=== PATIENT | female | born 1990 | race Caucasian/White ===

== ENCOUNTER → 2020-07-12 09:45 | Outpatient (CLI) | payer OTHER, SELFPAY ==
--- NOTE | 2020-07-12 | DI.US.S_ITS ---
PROCEDURE: US OB <= 14 WEEKS FETUS INDICATIONS: INITIAL SIZING AND DATING OUTSIDE/PRIOR DATING DATA: First dating scan (date and location): 07/12/2020 . Estimated date of delivery (RAYO) from first dating scan: 02/21/2021 . TECHNIQUE: Real-time scanning was performed of the fetus and maternal pelvic organs, with image documentation. Endovaginal scanning was also performed to better visualize the fetus and maternal ovaries. COMPARISON: None. FINDINGS: Embryo: May-rump length measures 1.6 cm corresponding to 8 weeks 0 days. Heart rate measures 149 beats per minute. Measurement variability in dating: +/- 4 weeks by LMP, +/- 7 days by mean sac diameter (use before 6 weeks gestation if crown-rump length not able to be measured), +/- 5 days by crown-rump length (up to 8 weeks 6 days gestation), +/- 7 days by crown-rump length (up to 13 weeks 6 days gestation). Maternal organs: Ovaries within normal limits, with 2.6 cm left corpus luteal cyst . Limited images through the kidneys demonstrate no hydronephrosis. IMPRESSION: 8 week 0 day single living IUP corresponding to ultrasound RAYO of 02/21/2021. Dictated by: Leon Trejo [facility] Interpreted: Tariq Owens MD on 07/12/2020 at 11:02 Approved by: Tariq Owens M.D. on 07/12/2020 at 13:57
== END ==
PROVIDERS: PCP Student in an Organized Health Care Education/Training Program; Referring Provider Student in an Organized Health Care Education/Training Program; Visit Provider Student in an Organized Health Care Education/Training Program
DX: Z34.91 Encounter for supervision of normal pregnancy, unspecified, first trimester (principal); Z3A.08 8 weeks gestation of pregnancy
CPT/HCPCS: 76801

== ENCOUNTER → 2020-10-10 09:41 | Outpatient (CLI) | payer OTHER, SELFPAY ==
--- NOTE | 2020-10-10 09:44 | DI.US.S_ITS ---
PROCEDURE: US OB >= 14 WEEKS FETUS INDICATIONS: 20 week Anatomy scan OUTSIDE/PRIOR DATING DATA: Last menstrual period (LMP): On known . LMP-based estimated date of delivery (RAYO): Unknown . First dating scan (date and location): 07/12/2020, Estimated date of delivery (RAYO) from first dating scan: 02/21/2021 . TECHNIQUE: Real-time scanning was performed of the fetus, with image documentation and biometric measurements. COMPARISON: [facility], , OB <= 14 WEEKS FETUS, 07/12/2020, 9:57. FINDINGS: General: A single living intrauterine gestation is present. Presentation: Vertex. Placenta: Placental position is anterior , without previa. Amniotic fluid index: 11.7 cm, normal range is 5-24 cm. heart rate: 147 beats per minute. Maternal cervical canal: 5.9 cm long. Normal lower limit is 2.5 cm. biometrics: Biparietal diameter: 4.6 cm, 20 weeks 0 days Head circumference: 18.2 cm, 20 weeks 4 days Abdominal circumference: 15.8 cm, 21 weeks 0 days Femur length: 3.8 cm, 22 weeks 0 days Estimated gestational age from initial scan: 20 weeks 6 days Composite gestational age from present scan: 20 weeks 6 days Estimated weight and percentile: 413 g, 69th percentile Measurement variability for biometric dating: +/- 7 days from 14 weeks to 15 weeks 6 days gestation, +/- 10 days from 16 weeks to 21 weeks 6 days gestation, +/- 2 weeks from 22 weeks to 27 weeks 6 days gestation, +/- 3 weeks for 28 weeks gestation or later. weight reference: 4500 g or EFW >90/95% is considered macrosomia or large for gestational age. EFW <10% is small for gestational age. EFW 5% or less is considered intra-uterine growth restriction. Anatomic survey: Neuro: Ventricles are non-dilated at less than 10 mm. Cisterna magna is normal at 3-11 mm. Cerebellum is normal in size and morphology. Nuchal skin fold: Normal at less than 6 mm between 14-21 weeks gestational age. Face: Nose and lips, facial profile are normal. Spine: No evidence for spina bifida. Heart: 4-chambered heart is present, with normal ventricular outflow tracts. Diaphragm: Diaphragm is intact. Stomach: Left-sided stomach is present. Kidneys: No hydronephrosis. Normal is less than 5 mm in 2nd trimester, less than 7 mm in 3rd trimester. Cord: 3-vessel cord has orthotopic insertion. Bladder: Normal in size. Extremities: All 4 extremities identified. IMPRESSION: 1. Living 2nd trimester intrauterine . 2. Current ultrasound age equals current clinical age based on initial ultrasound. 3. Normal anatomy survey. Dictated by: Darinel Lopez M.D. on 10/10/2020 at 12:53 Approved by: Darinel Lopez M.D. on 10/10/2020 at 13:38
== END ==
PROVIDERS: PCP Student in an Organized Health Care Education/Training Program; Referring Provider Nurse Practitioner Obstetrics & Gynecology; Visit Provider Nurse Practitioner Obstetrics & Gynecology
DX: Z36.89 Encounter for other specified antenatal screening (principal); Z3A.20 20 weeks gestation of pregnancy
CPT/HCPCS: 76811

== ENCOUNTER → 2020-11-19 06:46 | Outpatient (CLI) | payer OTHER, SELFPAY ==
[2020-11-19 08:17] LABS: Hematocrit 30.6 % (36-46); Hemoglobin 10.7 g/dL (12.0-16.0); Mean Corpuscular HGB Conc 34.8 % (30-36); Mean Corpuscular Hemoglobin 31.6 PG (26-34); Mean Corpuscular Volume 90.6 fL (80-100); Platelet Count 228 X10^3/uL (150-400); Red Blood Cell Count 3.38 X10^6/uL (4.0-5.2); Red Cell Distribution Width 13.3 % (11.6-14.8)
[2020-11-19 08:34] LABS: Glucose Fasting 84 mg/dL (70-100)
[2020-11-19 09:04] LABS: Glucose 1 Hour 126 mg/dL (70-170)
[2020-11-19 09:19] LABS: Glucose Tol Interpretation INTERPRETATION
[2020-11-19 11:25] LABS: Glucose 2 Hour 122 mg/dL (70-140)
== END ==
PROVIDERS: PCP Student in an Organized Health Care Education/Training Program; Referring Provider Nurse Practitioner Obstetrics & Gynecology; Visit Provider Nurse Practitioner Obstetrics & Gynecology
DX: Z34.90 Encounter for supervision of normal pregnancy, unspecified, unspecified trimester (principal); Z3A.26 26 weeks gestation of pregnancy
CPT/HCPCS: 36415; 82951; 82952; 85027

== ENCOUNTER → 2021-01-29 19:48 | Outpatient (ROUT) | payer OTHER, SELFPAY | PROVIDERS: PCP Student in an Organized Health Care Education/Training Program; Visit Provider Nurse Practitioner Obstetrics & Gynecology | DX: Z34.90 Encounter for supervision of normal pregnancy, unspecified, unspecified trimester (principal); Z36.85 Encounter for antenatal screening for Streptococcus B; Z3A.36 36 weeks gestation of pregnancy | CPT/HCPCS: 87081; 87147 ==

== ENCOUNTER 2021-03-04 05:31 | Inpatient (IN) | payer OTHER, SELFPAY ==
--- NOTE | 2021-03-04 05:38 | PM.OBTRLD ---
Visit Information Visit Information Date of evaluation: 03/04/21 Primary OB Provider: Fide Bolanos On-call OB Provider: Bernadette Mirza Reason for Evaluation: Yes rule out labor Comments/Additional reasons for admission: 30YO @ 41wks by LMP and early US presents for evaluation of labor. Has keo dung regularly since yesterday. Lots of FM w/ small spotting and just lost her mucus plug. Denies leaking of fluid. Uncomplicated care w/ CNM. Desires low intervention , but open to nitrous and epidural. Is extremely tired, not having slept much overnight. , Seb, is present and supportive. Vital Signs Vital Signs: BP 120/64, HR 88bpm, T 36.3C Temporal PFSH Family History (Updated 03/04/21 @ 05:45 by Fide Bolanos CNM) Sister No problems noted. Mother Substance abuse Social History (Updated 03/04/21 @ 05:46 by Fide Bolanos CNM) marital status: household members: spouse lives independently: Yes caregiver/support person: No housing: house education level: college occupational status: employed current occupational exposures/hazards: No do you feel safe at home: Yes Smoking Status: Never smoker Review of Systems Review of Systems ROS: Yes All systems reviewed with the patient and are negative except as otherwise documented Exam Vital Signs (past 8 hours): see above Presentation: vertex Evaluation Evaluation Baseline heart rate: 145 Variability: Moderate (11-25) monitor accelerations: Present Monitor Decelerations: Absent Contraction Frequency (minutes): 3 Uterine Contraction Intensity: Moderate Category of Tracing: Reactive Status: Category l Cervical dilation (cm): 3 Cervical effacement (%): 90 station: -2 Comments: Early Labor Diagnosis, Plan/Disposition Plan/Disposition Plan: Recommend 2 hour walk and return. Encourage hydration and snacks. Reassess for admission in 2 hours or sooner. PRN.
[2021-03-04 06:41] LABS: COVID-19 CEPHEID PCR (VTM/NP) Negative (Negative)
--- NOTE | 2021-03-04 08:58 | PM.OBHP.1 ---
OB HPI Date/Time Date of admission: 03/04/21 Date Patient Seen: 03/04/21 Time Patient Seen: 08:50 History of Present Condition Chief complaint: Observation : 1 Para: 0 Estimated Date of Delivery: 02/25/21 Estimated Gestational Age (weeks): 41.0 Narrative: Ayana Nails is a 30 year old female @ 41wks by LMP and early US who presents for evaluation of labor. Was seen in triage this morning @ /-2 and went for a walk with no concers for vaginal bleeding or leaking of fluid. Has been feeling regular movement. History of Present care: good care, initiated at week # (10), number of visits (12) and pounds weight gain (29) Dating criteria: LMP confirmed by 1st trimester US Ultrasounds: normal mid trimester US Obstetrical complications: other (Anemia) Medical complications: none Preadmission Labs Blood type: A (+) positive -: Antibody screen: negative, GBS status: positive, HBsAG: negative and RPR/VDLR: negative -: Rubella: immune HCAB: negative Cell-free DNA: Negative- female Narrative: 2hr gtt: 84/126/122 Evaluation Evaluation Baseline heart rate: 145 Variability: Average (6-10) monitor accelerations: Present Monitor Decelerations: Absent Contraction Frequency (minutes): 4 Uterine Contraction Intensity: Moderate Status: Category l Cervical dilation (cm): 4 Cervical effacement (%): 90 station: -2 Laboratory results: Laboratory Tests 03/04/21 05:46 SARS-CoV-2 (PCR) Negative PFSH Family History Sister No problems noted. Mother Substance abuse Social History marital status: household members: spouse lives independently: Yes caregiver/support person: No housing: house education level: college occupational status: employed current occupational exposures/hazards: No do you feel safe at home: Yes Smoking Status: Never smoker Meds Home Medications and Allergies Home Medications Medication Instructions Recorded Confirmed Type 03/04/21 History Allergies Allergy/AdvReac Type Severity Reaction Status Date / Time carla Allergy Intermediate Verified 03/04/21 09:08 Review of Systems Review of Systems ROS: Yes All systems reviewed with the patient and are negative except as otherwise documented Exam Vital Signs (past 8 hours): BP 128/66mmHg, HR 78bpm, RR 18/min, T 36.7C Temporal Chest Chest: normal inspection of the chest Resp Auscultation: clear to auscultation bilaterally Cardio Rate: regular rate Rhythm: regular rhythm Heart Sounds: S1 normal and S2 normal Presentation: vertex Objective Labs Result Diagrams: 03/04/21 08:50 Labs: Laboratory Results - last 24 hr 03/04/21 05:46 SARS-CoV-2 (PCR) Negative Assessment and Plan Assessment and Plan Assessment and Plan narrative: A: Term nullipara Active labor Anemia GBS prophylaxis indicated Cat I FHR P: Admit, routine orders w/ penicillin for GBS. Labor support PRN. May switch to IA after 20 minutes of Cat I FHR tracing. Reassess in 4 hours or sooner, PRN.
[2021-03-04 09:14] LABS: Add Manual Diff / Slide Review NO; Basophils Absolute Auto 100 /uL (0-100); Basophils Percent Auto 0.7 % (0-2); Eosinophils Absolute Auto 0 /uL (0-450); Eosinophils Percent Auto 0.4 % (2-4); Hematocrit 38.4 % (36-46); Hemoglobin 13.2 g/dL (12.0-16.0); Lymphocytes Absolute Auto 1500 /uL (1100-4500); Lymphocytes Percent Auto 13.5 % (25-40); Mean Corpuscular HGB Conc 34.3 % (30-36); Mean Corpuscular Hemoglobin 31.4 PG (26-34); Mean Corpuscular Volume 91.7 fL (80-100); Monocytes Absolute Auto 600 /uL (0-900); Monocytes Percent Auto 5.2 % (3-14); Neutrophils Absolute Auto 8900 /uL (1500-7000); Neutrophils Percent Auto 80.2 % (50-75); Platelet Count 175 X10^3/uL (150-400); Red Blood Cell Count 4.18 X10^6/uL (4.0-5.2); Red Cell Distribution Width 13.9 % (11.6-14.8); White Blood Cell Count 11.1 X10^3/uL (4.5-11.0)
[2021-03-04] MEDS: LACTATED RINGERS 1,000 ML 100 ML IV ×3 (09:30→21:06)
[2021-03-04] MEDS: PENICILLIN G POTASSIUM 5,000,000 UNIT in DEXTROSE 5% IN WATER 250 ML IV (09:41)
[2021-03-04 12:54] VITALS: BP 120/64
--- NOTE | 2021-03-04 13:13 | PM.OBPNLAB ---
Date/Time Date Patient Seen: 03/04/21 Time Patient Seen: 13:00 Pain Control Pain control: other Comments: Ayana has been laboring well without medication. Has been breathing through strong contractions regularly for the last 4hours and states contractions recently got stronger, now occasionally struggling to cope, considering an epidural. VS: BP 138/85mmHg, HR 78bpm, RR 16/min, T 36.2C Temporal Pelvic Exam Dilation (cm): 5 Effacement (%): 90 station: -1 Contractions Contraction frequency (min): 3 Contraction duration (min): 1 Contraction pattern: Regular Contraction intensity: Strong/Firm Status status: Category ll Heart Rate Baseline: 155 Monitor Accelerations: Present Monitor Decelerations: Absent Monitor Variability: Moderate Comments: Current tachycardia. FHR has been reassuring by intermittent auscultation at 145bpm until last check when a lot of movement and tachycardia was noted. Was switched back to EFM at that time. Assessment and Plan Assessment: active labor Plan: continuous present management Comments: Reviewed FHR tracing w/ who is comfortable continuing expectant management of labor. Will continue to offer continuous labor support and epidural, if requested. Reassess in 4 hours or sooner, PRN.
[2021-03-04] MEDS: PENICILLIN G POTASSIUM 3,000,000 UNIT/50 ML FROZ.PIGGY 100 UNIT IV ×3 (13:32→21:37)
[2021-03-04] MEDS: OXYTOCIN PREMIX 30 UNIT/500 ML PLAST..BAG IV (17:38)
--- NOTE | 2021-03-04 17:51 | PM.OBPNLAB ---
Date/Time Date Patient Seen: 03/04/21 Time Patient Seen: 17:00 Pain Control Pain control: epidural Comments: Contractions spaced and eased shortly after last exam. Ayana declined pitocin augmentation and/or nipple stimulation at that time. Was able to get some sleep and then tried walking without an increase in contraction intensity or frequency. Came back from her walk and agreed to start pitocin augmentation after getting an epidural. Now comfortable with epidural in place. VS: BP 112/64mmHg, HR 88bpm, T 36.3C Temporal Pelvic Exam Dilation (cm): 5 Effacement (%): 90 station: -1 Amniotic membrane status: Intact Contractions Contractions on admission: regular Monitor mode: External Pitocin rate (mU/min): 2 Contraction frequency (min): 5 Contraction duration (min): 1 Contraction pattern: Regular Contraction intensity: Moderate Status status: Category l Heart Rate Baseline: 140 Monitor Accelerations: Present Monitor Decelerations: Absent Monitor Variability: Moderate Assessment and Plan Assessment: active labor Plan: begin patient augmentation Comments: Encourage frequent position changes. Pitocin, per protocol. Reassess in 4 hours or sooner, PRN.
--- NOTE | 2021-03-04 21:33 | PM.OBPNLAB ---
Date/Time Date Patient Seen: 03/04/21 Time Patient Seen: 21:20 Pain Control Comments: Ayana remains comfortable with her epidural VS: BP 106/59mmHg, HR 80bpm, T 36.4C Temporal Pelvic Exam Dilation (cm): 5 Effacement (%): 90 station: -1 Amniotic membrane status: Ruptured Comments: AROM by CNM, clear fluid Contractions Monitor mode: External Pitocin rate (mU/min): 8 Contraction frequency (min): 3 (contractions 1-5 min apart) Contraction duration (min): 80 (60-120 min) Contraction pattern: Regular Contraction intensity: Moderate Status status: Category l Heart Rate Baseline: 135 Monitor Accelerations: Present Monitor Decelerations: Absent Monitor Variability: Moderate Assessment and Plan Assessment: active labor Plan: other Comments: continue to increase pitocin, reassess pt in 3 hours, plan to place IUPC if cervix unchanged, notified OB backup of minimal progress, patient status and plan of care
[2021-03-04] MEDS: FENT 2MCG/ML BUPIV 0.125% EPI 200 MCG/100 ML PLAST..BAG 12 MCG EPIDURAL (23:50)
--- NOTE | 2021-03-05 00:46 | PM.OBPNLAB ---
Date/Time Date Patient Seen: 03/05/21 Time Patient Seen: 00:25 Pain Control Pain control: epidural Comments: Ayana remains comfortable with her epidural VS: BP 123/58mmHg, HR 78bpm, T 37.1C Temporal Pelvic Exam Dilation (cm): 6 Effacement (%): 90 station: 0 Amniotic membrane status: Ruptured Comments: fluid remains clear Contractions Monitor mode: External Pitocin rate (mU/min): 11 Contraction frequency (min): 3 (contractions 1-5 min apart) Contraction pattern: Regular Contraction intensity: Moderate Status status: Category ll (overall reassuring) Heart Rate Baseline: 140 Monitor Accelerations: Present Monitor Decelerations: Variable (rare) Monitor Variability: Moderate Assessment and Plan Assessment: active labor Plan: continuous present management Comments: Updated Dr. Mirza on patient's progress. Recommend continued frequent position changes and pitocin titration to adequate contraction pattern. Reassess in 3-4 hours or sooner, PRN.
[2021-03-05] MEDS: PENICILLIN G POTASSIUM 3,000,000 UNIT/50 ML FROZ.PIGGY 100 UNIT IV ×2 (01:36→05:22)
[2021-03-05] MEDS: FENT 2MCG/ML BUPIV 0.125% EPI 200 MCG/100 ML PLAST..BAG 12 MCG EPIDURAL (05:22)
--- NOTE | 2021-03-05 05:48 | PM.OBPNLAB ---
Date/Time Date Patient Seen: 03/05/21 Time Patient Seen: 05:10 Pain Control Comments: Pain is mostly well controlled with epidural anesthesia, though she has been feeling pain on her left side and using the PCEA button. VS: BP 125/57mmHg, HR 77bpm, T 37.1F Temporal Pelvic Exam Dilation (cm): 7 Effacement (%): 90 station: 0 Amniotic membrane status: Ruptured Comments: Fluid remains clear. Cervix now edematous. Contractions Monitor mode: External Pitocin rate (mU/min): 17 Contraction frequency (min): 3 (contractions 1-5 min apart) Contraction pattern: Regular Contraction intensity: Moderate Intrauterine tone measurement: 240 Status status: Category ll (overall reassuring) Heart Rate Baseline: 150 Monitor Accelerations: Present Monitor Decelerations: Variable (rare) Monitor Variability: Moderate Assessment and Plan Assessment: active labor (Arrested) Plan: Comments: Counseled Ayana on Arrest of active phase labor and recommendation for primary . Ayana asked for more time and information so an IUPC was placed with adequate contractions noted. Ayana continues to ask for more time to process this before speaking to an OBGyn, request made at 0545. Given that she and her baby are stab;e and the indication for is not emergent, will consult [facility] OB/ in 30 minutes. IUPC pulled and pitocin turned off at this time.
--- NOTE | 2021-03-05 07:03 | PM.PREOP ---
Pre-operative Note COVID-19 COVID-19 status: Negative Result date/Date tested (Pos, Neg/Pending): 03/04/21 Interval Note History & Physical reviewed/Exam performed by Physician: Yes Changes to H&P: No
--- NOTE | 2021-03-05 07:05 | P.CONS_ITS ---
History of Present Illness Consult details Date Patient Seen: 03/05/21 Time Patient Seen: 06:45 Chief complaint: Labor, Failure to progress Reason for consult: Failure to Progress in labor due to CPD Requesting provider: Fide Bolanos Meds Home Medications and Allergies Home Medications Medication Instructions Recorded Confirmed Type 03/04/21 History Allergies Allergy/AdvReac Type Severity Reaction Status Date / Time carla Allergy Intermediate Verified 03/04/21 09:08 Exam Const General: cooperative, healthy appearing and anxious Nutritional Appearance: average body habitus Orientation: alert and oriented x3 HENMT Head: normal to inspection Eyes General: appearance normal, both eyes and all related structures Neck Neck: normal visual inspection GI Inspection: normal to inspection and other (Gravid, EFW 7.5 - 8#, vertex) Manual OB Exam: dilated 7, effaced 75% and station -1 Uterus Location (Fundal Height): 36 Presentation: vertex Estimated Weight (lbs): 8 Amniotic Fluid: clear Objective Labs Result Diagrams: 03/04/21 08:50 Labs: Laboratory Results - last 24 hr 03/04/21 03/04/21 08:50 08:50 WBC 11.1 H RBC 4.18 Hgb 13.2 Hct 38.4 MCV 91.7 MCH 31.4 MCHC 34.3 RDW 13.9 Plt Count 175 Neut % (Auto) 80.2 H Lymph % (Auto) 13.5 L [place] % (Auto) 5.2 Eos % (Auto) 0.4 L Baso % (Auto) 0.7 Neut # (Auto) 8900 H Lymph # (Auto) 1500 [place] # (Auto) 600 Eos # (Auto) 0 Baso # (Auto) 100 Blood Type A Positive Antibody Screen Negative Assessment & Plan Assessment and plan (1) : Status: Acute (2) Failure to progress in first stage of labor: Status: Acute (3) Cephalopelvic disproportion: Status: Acute Assessment & Plan narrative: Options for delivery discussed with Ayana and her following previous counseling by her attending sand cleaning machine operator. Indication for primary section is clearly met and patient agrees with decision to proceed to delivery by . Risks benefits and complications reviewed previously and written consent obtained. Time Spent With Patient Time with patient: less than 15 minutes
[2021-03-05] MEDS: CEFAZOLIN VIAL 2 GM in SODIUM CHLORIDE 0.9% 100 ML 200 ML IV (07:35)
--- NOTE | 2021-03-05 08:02 | SUR.OPER ---
Supine on Padded OR bed, head on pillow, safety belt at thigh, arms secured on padded arm boards at <90 degrees abduction. Bump under right buttock. Legs uncrossed with pillow under knees, gel pad to heels, tape over blanket to lower legs. Gel pad between Urinary catheter tubing and posterior upper leg.
--- NOTE | 2021-03-05 08:03 | SUR.OPER ---
Viable baby girl delivered at 0755. Placenta delivered. Cord blood tubes X2 and placenta given to L&D RN.
[2021-03-05] MEDS: TRANEXAMIC ACID 1,000 MG in SODIUM CHLORIDE 0.9% 100 ML 200 ML IV (08:19)
[2021-03-05] MEDS: LACTATED RINGERS 1,000 ML 100 ML IV ×2 (08:21→09:32)
[2021-03-05] MEDS: ACETAMINOPHEN IV 1,000 MG/100 ML VIAL 400 MG IV (08:22)
[2021-03-05 08:54] VITALS: BP 86/55; PULSE 120; RESP 26; TEMP 36.4; O2SAT 97
--- NOTE | 2021-03-05 08:54 | PM.OBCS.1 ---
Operative Date/Time/Diagnoses Date of procedure: 03/05/21 Time of procedure: 07:15 Pre-op diagnosis: Secondary arrest of labor in the 1st stage due to cephalopelvic disproportion Post-op diagnosis: same Procedure & Clinicians Procedure: Primary section (Low transverse cervical) Same procedure as scheduled: Yes Surgeon: John Lang Click Yes if Unassisted: No Aircraft Accessories Mechanic: Fide Bolanos Reason for Aircraft Accessories Mechanic: the research assistant member was required for retraction and the safe, timely, and effective performance of the delivery. Anesthesia Type: General, Spinal (Failed, unilateral block) and Epidural (Labor, poor block effect on the left) Operative Notes Findings: Viable female , vertex, Apgars /, BW delivered from the LOT position Closure Type: primary Specimen(s): cord blood Intraoperative meds administered: Acetaminophen, Methergine, Pitocin and Tranexamic acid Applied: Catheter Blood products transfused: none Procedure in detail: The patient was taken to the Main OR for delivery and a spinal anesthetic was placed after removal of her ANIKA catheter which had afforded incomplete relief on the left side. A kitchen catheter was placed and the abdomen prepped and draped for delivery. A pre-surgical time-out was taken in accordance with [facility] Main OR protocol. testing for adequate anesthesia from the spinal block was carried out and she had minimal if any anesthesia on the left side. Accordingly, the decision was made to proceed with general anesthetic and once GET anesthesia induced, a 15 cm transverse Pfannenstiel incision was made and carried down to the deep fascia. The deep fascia was incised transversely, undermined cephalad and caudad, the rectus abdomini bluntly, and the peritoneal cavity entered sharply. A bladder flap was then created with Metzenbaum scissors and the bladder advanced downward. Bladder blade was then placed and hysterotomy performed in the midline with clear fluid noted. The was delivered from the vertex presentation, LOP position without difficulty and a shoulder cord was noted. The umbilical cord was immediately clamped and cut due to general anesthesia and the infant passed off the surgical field to nursing and respiratory staff in attendance. The placenta was removed with gentle cord traction and uterine massage. Uterus was easily exteriorized. The endometrial cavity was then explored first with a dry lap followed by a sloppy wet lap and found to be empty. The edges of the hysterotomy were grasped with ring forceps and primary closure was accomplished with #1 Chromic in a running interlocking stitch followed by imbricating layer of #1 Chromic in a running, locking imbricating stitch. Transient uterine hypertonus was noted and managed with administration of IV Pitocin, IM Methergine 0.2 mg, and tranexamic acid 1000 mg IV. Hemostasis was excellent but 1 additional [id number] stitch of #1 Chromic was required for absolute hemostasis of the hysterotomy. A bladder flap was then closed with 2-0 Vicryl in a running stitch as was the anterior peritoneum. The deep fascia was then closed with #1 Vicryl in a running stitch initiated at both angles and tied separately near the midline. The subcutaneous tissues were brought together with inverted interrupted sutures using 2-0 Vicryl. The skin edges were brought together with 4-0 Monocryl in subcuticular closure and appropriate dressings were applied after application of Steri-Strips. The operation was then terminated, the patient awakened, and transferred to the PACU for a period of recovery having tolerated the procedure well. Complications: other (Uterine hypotonus following delivery)
[2021-03-05] MEDS: MEPERIDINE 50 MG/ML INJ 12.5 MG IV (08:58)
[2021-03-05 08:59] VITALS: BP 115/72; PULSE 129; RESP 26; O2SAT 100
[2021-03-05 09:04] VITALS: BP 143/80; PULSE 74; RESP 20; O2SAT 98
[2021-03-05 09:07] VITALS: BP 143/80; PULSE 86; RESP 18; O2SAT 95
[2021-03-05 09:15] VITALS: BP 133/60; PULSE 63; RESP 16; O2SAT 98
[2021-03-05] MEDS: OXYCODONE IR 5 MG TABLET PO ×2 (09:17→15:33)
[2021-03-05] MEDS: ONDANSETRON 4 MG/2 ML INJ IV (09:19)
[2021-03-05 09:30] VITALS: BP 124/59; PULSE 64; RESP 14; O2SAT 98
--- NOTE | 2021-03-05 10:28 | SUR.PHASEI ---
Pt arrived to PACU from OR with shakes . Bear hugger placed on patient and Demerol IV given. Shakes resolved with treatment given. Oral pain meds given with apple sauce, zofran given as pt reports nausea one time when oxycodone not taken with food. Pt transferred to center room 3. Bed low, locked, SCD on. Fundal and dresing check done with Michaela PRESTON at bedside. Pt left in stable condition.
--- NOTE | 2021-03-05 11:08 | PM.PROC.1 ---
Procedures Date/Time Date of procedure: 03/05/21 Time of procedure: 07:55 General Procedure description: Butadiene Compressor Operator Documentation I assisted the OB english as a second language instructor in the section for this patient. My responsibilities included retracting and suctioning, providing fundal pressure during delivery and following with suture during closure. Please see the OB's note for details of the surgery.
[2021-03-05] MEDS: IBUPROFEN 600 MG TABLET PO ×2 (14:16→21:49)
[2021-03-05] MEDS: ACETAMINOPHEN 325 MG TABLET 975 MG PO (15:33)
[2021-03-06] MEDS: ACETAMINOPHEN 325 MG TABLET 975 MG PO ×3 (00:24→15:39)
[2021-03-06] MEDS: OXYCODONE IR 5 MG TABLET PO ×4 (00:25→18:24)
[2021-03-06] MEDS: IBUPROFEN 600 MG TABLET PO ×3 (06:42→18:22)
--- NOTE | 2021-03-06 08:29 | PM.PNPO.1 ---
Subjective Subjective Date Patient Seen: 03/06/21 Time Patient Seen: 08:29 Interval history: POD#1 Primary Section (LTC) No issues overnight. Patient has passed flatus but has not yet had a bowel movement. Tolerating regular diet without difficulties. Lochia minimal. Patient is only now starting to ambulate but ambulation thus far is well tolerated. Galloway catheter is been removed and patient is voiding without difficulty. Exam Vital Signs (past 8 hours): Oxygen Delivery Method Room Air Const General: cooperative and comfortable Nutritional Appearance: average body habitus [facility] Head: normal to inspection Eyes General: appearance normal, both eyes and all related structures Neck Neck: normal visual inspection Resp Effort & Inspection: normal respiratory effort and able to speak in complete sentences Auscultation: clear to auscultation bilaterally Cardio Rate: regular rate Rhythm: regular rhythm Heart Sounds: S1 normal, S2 normal and no murmurs GI Inspection: distended and incision ( Dressing is clean and dry.) Palpation: soft, no hepatosplenomegaly, mass (Fundus is U -3, nontender) and tender ( Minimal.) Auscultation: hypoactive bowel sounds Extrem General: no calf tenderness Psych Appearance: grossly normal Mental Status: mental status grossly normal Speech and Movement: speech and movement normal Mood: congruent mood Affect: normal affect Attitude: cooperative Thought Process: normal Thought Content: normal Judgment: judgment good Objective Labs Result Diagrams: 03/04/21 08:50 PFSH Family History Sister No problems noted. Mother Substance abuse Social History marital status: household members: spouse lives independently: Yes caregiver/support person: No housing: house education level: college occupational status: employed current occupational exposures/hazards: No do you feel safe at home: Yes Smoking Status: Never smoker Assessment & Plan Post-op Postoperative Procedures: Procedures Operation Date: 03/05/21 14:30 Actual Procedure Side Surgeon p Section John Lang MD Postoperative day: 1 Postoperative status: doing well Postoperative plan: routine post-op care Postoperative plan narrative: Increased ambulation as tolerated. Possible discharge later today or a.m. 03/07. Time Spent With Patient Time with patient: less than 15 minutes
[2021-03-06] MEDS: DOCUSATE 250 MG CAPSULE PO (12:38)
[2021-03-06] MEDS: PRENATAL VIT,CALC/IRON/FOLIC 1 TABLET 1 TAB PO (12:39)
[2021-03-06] MEDS: FERROUS SULFATE 325 MG TABLET PO (12:41)
--- NOTE | 2021-03-06 15:47 | PM.OBDS.1 ---
Discharge Providers Provider Date of admission: 03/04/21 05:31 Discharge Date: 03/06/21 Primary care physician: Afshan Alegria MD Consults: 03/05/21 12:26 Consult to Cellulose Insulation Helper Routine Comment: Discharge provider: John Lang MD Summary Hospital Course Date Patient Seen: 03/06/21 Time Patient Seen: 15:48 Diagnoses: Secondary arrest of labor in the 1st stage due to cephalopelvic disproportion Status post primary section, low transverse cervical Hospital Course: Ayana was admitted to the [facility] on the morning of 03/04/2021 in spontaneous early labor at 41+ weeks EGA by her senior environmental engineer, Fide Bolanos. she progressed slowly into the active phase of labor and reached 7 cm at approximately midnight on 03/04/2021. Recheck at 5:00 a.m. on 03/05/2021 showed the cervix had not changed, the vertex remained high in OT position, and the cervix was becoming progressively more edematous. Pitocin augmentation had been used to enhance uterine contraction activity throughout this time and the adequacy of uterine contractions was documented with an IUPC. Based on the lack of progress despite active uterine contraction activity, she was diagnosed with secondary arrest of labor in the 1st stage due to presumed cephalopelvic disproportion. An obstetrical consultation was obtained and was concurrent with the attending senior environmental engineer's clinical assessment. the patient and her were informed of the findings and the recommendation for primary delivery. After considering all options they agreed to proceed and at 0755 on the morning of 02/27/2021, the patient delivered a viable female infant Apgars of 7/8 with a weight of 3730 g ( 8 lb 3.6 oz). The QBL at the time of surgery was 600 cc and no complications were experienced. Details of the procedure are well summarized on my dictated operative note of that date. Following delivery the patient has done extremely well with prompt return of bowel and bladder function, is tolerating a regular diet without difficulty, ambulating independently, and her pain is well controlled with as needed oxycodone tabs and as needed Tylenol and/or ibuprofen. She will be discharged at this time in an afebrile normotensive condition to home with medications to include oxycodone 5 mg tab 1 p.o. q.4 hours as needed pain dispense 20 with no refills, OTC Tylenol as needed, ibuprofen 600 mg p.o. q.6 hours number 60 x2, and Colace 100 mg p.o. b.i.d. times 30 days as needed for constipation. Prior to discharge the patient was counseled regarding precautionary symptoms, limitations of activity, medications, and plans for follow-up. She will be seen by her senior environmental engineer in 6 weeks and by me in 1 week for an incision check. Detailed written instructions were provided along with [id number] counseling prior to discharge. Peripartum Data Delivery Method: Section Laceration Description: None Episiotomy description: None Procedures: Primary section, low transverse cervical complications: none 1: Gender: Female Disposition of : home Discharge Diagnosis (1) : Status: Acute (2) Failure to progress in first stage of labor: Status: Acute (3) Cephalopelvic disproportion: Status: Acute Status at Discharge Cognitive/behavioral status at discharge: at baseline, oriented Functional status at discharge: independent ambulation Overall status at discharge: patient is progressing back to baseline Time Spent with Patient Time attestation: Total time spent providing and/or coordinating discharge services: Time spent: Less than 30 minutes Objective Labs Result Diagrams: 03/04/21 08:50 Exam Vital Signs (past 8 hours): Oxygen Delivery Method Room Air Const General: cooperative and comfortable Nutritional Appearance: average body habitus Orientation: alert and oriented x3 HENMT Head: normocephalic and atraumatic Ears: hearing grossly normal bilaterally Nose: external nose normal Face and sinus: face symmetric Eyes General: appearance normal, both eyes and all related structures Conjunctivae: conjunctivae normal Sclera: sclerae normal EOM: EOM intact bilaterally Neck Neck: normal visual inspection Resp Effort & Inspection: normal respiratory effort and able to speak in complete sentences Auscultation: clear to auscultation bilaterally Cardio Rate: regular rate Rhythm: regular rhythm Heart Sounds: S1 normal, S2 normal and no murmurs GI Inspection: normal to inspection and non-distended Palpation: soft, no hepatosplenomegaly, mass (Fundus is firm, nontender, and U -3) and tender (mild postsurgical tenderness) Auscultation: hypoactive bowel sounds Extrem General: normal to inspection and no calf tenderness Psych Appearance: grossly normal Mental Status: mental status grossly normal Speech and Movement: speech and movement normal Mood: congruent mood Affect: normal affect Attitude: cooperative Thought Process: normal Thought Content: normal Judgment: judgment good Discharge Plan Discharge Plan Patient Disposition: Home Provider Discharge Comment: Congratulations and thanks for letting us be part of your experience. Here are some things to consider following delivery: General activities The more you are up and out of bed, the faster your recovery will be. You may gradually resume your normal activities as soon as you wish, beginning with mild exercise, like walking. The benefits of exercise include improved muscle tone, quicker healing and a more positive attitude. Fresh air and sunshine are refreshing for both you and your baby. Avoid heavy lifting, strenuous exercise and excessive stair climbing. Refer to your doctor?s specific activity restrictions given to you when you leave the hospital. A good rule to follow is that you should not lift anything heavier than your baby in the car seat. It is common for women to have swelling, especially in their legs and feet. This is the body?s way of getting rid of some of the excess fluid accumulated in . It can take up to two weeks for the swelling to resolve. Elevate your feet when sitting or lying down and make sure you drink a lot of fluids to help your body get rid of the excess fluid. Call your doctor if one leg is much more swollen than the other, if you have pain in your leg when walking or if there is a red hot area in one leg. Start Kegel exercises immediately after delivery. This movement is similar to stopping the flow of urine. Squeeze for three seconds and release. Begin with 10 repetitions twice a day, gradually building up to 100 repetitions twice a day. This will help with healing as well as minimize bladder leakage (stress incontinence). Try to get as much rest as you can. Plan to get at least one nap a day as you will be up frequently during the night with the baby. A good time to nap is when the baby sleeps. Lack of sleep can affect your mood and can increase anxiety. Allow friends and relatives to help with housework, cooking and other chores. Shower as often as you like, but avoid tub baths or swimming until after your checkup. There should be nothing placed in the vagina until after your checkup. This means no tampons, douching or intercourse (sex). Your follow-up appointment will be scheduled by our office staff following your delivery. Driving should be avoided for one to two weeks, or until the operation of an automobile will not be painful or cause undue exertion. Do not drive if you are taking narcotics for pain relief. Refer to the discharge instructions from your physician or call your doctor?s office. Nutrition Good nutrition and adequate fluids are necessary for tissue repair, healing, and general health. Refrain from any weight-reducing diets until after your checkup. Most women lose eight to 10 pounds just from delivery. It takes almost a full year to return to your pre- weight. If you are , continue to take your vitamins. Eat a well-balanced diet that is high in protein (meat, fish, legumes), fiber (fruits, vegetables, whole grains), calcium (milk, yogurt, cheese, green leafy vegetables) and fluids. If you have a family history of food allergies or are concerned about food allergies for your baby while , consult your physician for guidance. Bowel care Concern about the ability to have a bowel movement is common after having a baby. Often mothers fear tearing their stitches or experiencing pain. Bowel function should return to normal three to four days after delivery. A diet high in fiber and fluids can help avoid constipation. Walking promotes bowel movements, passing gas and increased general circulation. Raising your feet onto a stool during a bowel movement can help decrease straining. For constipation, take an zjor-dvp-[id number] stool softener (Colace, Metamucil) or add prunes, prune juice or bran to your diet. If you have additional questions, please contact your doctor?s office. Uterine changes/bleeding/perineal care Your uterus should feel firm after delivery. You will feel contractions (afterbirth pains) after delivery as your uterus works to get back to a non- size. These pains tend to get more intense with each delivery. mothers may experience more cramping during and after feeding, especially in the early weeks. These contractions are temporary. Use relaxation/breathing techniques and the pain medications prescribed by your doctor to lessen discomfort. Continue to use the bowen-bottle to clean your perineum, rinsing front to back with warm water until the bleeding stops. Use your sitz-bath as directed; this will help dissolve any stitches and aid in healing the perineum. The first few days after delivery, your bleeding (also called lochia) is bright red; it changes to dark red, then brown, much like a normal period. This bleeding usually lasts two to four weeks. You may have light bleeding or continue to spot for up to six weeks. In the first days home, you may notice an increase in bleeding or darkening in bleeding due to increased activity; this may be a sign that you need more rest. You may also notice that you pass some blood clots, especially if you have been sitting or lying down for long periods of time. This is normal. If you are passing frequent clots or clots larger than an egg, please contact your health care provider. If you are , your first period may not start until after you wean your baby. If you are not , your first period will probably start four to six weeks after delivery and may be unusually heavy. Remember, even if you are , ovulation and fertility can return at any time, so it is important to use contraception. Make sure you discuss your options with your doctor/senior environmental engineer before resuming sexual relations. To allow for mom?s complete recovery, it is recommended that children be spaced at least 18 months apart. Breast care Wear a well-fitting bra. Nurse the baby as frequently as possible. Make sure your baby is latched properly to avoid sore or cracked nipples. You can express a small amount of breast milk on your nipples after feeding and let it air dry. Refer to the information included in this booklet for assistance with . If your breasts become engorged (very full/firm and tender), use ice packs for 15 to 20 minutes at a time. Lie flat while applying ice, if possible. You may also use hqhn-kaq-ffdnuca pain relievers. Engorgement usually resolves in two to three days. If you are still experiencing significant discomfort, please contact your doctor?s office for an appointment. You may want to contact a public relations consultant or the [employer] for additional support and information. If you have a fever higher than 100.4?F; a lump; or red, sore or hot area in the breast that does not go away after nursing, contact your doctor. Psychological adjustment Families go through many changes when a new baby is born. All family members are adjusting. Mothers experience a wide range of emotions. Mild feelings of sadness, depression and anxiety are common and are due to hormonal changes, lack of sleep and the demanding job of caring for a . These are frequently referred to as the ?baby blues.? These feelings are usually temporary and self-limiting. depression is less common and more serious. It is characterized by feelings of depression, anxiety, worry, hopelessness and lack of self-worth. It may also include thoughts of hurting yourself or the baby. depression requires treatment by a therapist and often medication. Please contact your doctor/senior environmental engineer if you or your family has any concerns about your mental health. Neither of these conditions reflects your feelings for your baby, your partner or your abilities as a mother. You cannot control these feelings, but they can be helped. There are medications that are safe to take while . [employer]: www..net, 1-079-864-4PPD Other ways you and your family can adjust to a new baby are: ?Rest/sleep when the baby sleeps. ?Eat a well-balanced diet. Now is not the time for dieting or junk food. ?Be flexible. It takes time to get to know your baby. ?Let others help you. Accept offers to bring dinner, go to the market or do other necessary chores. ?Spend special time with your other children and your partner. A new baby is an adjustment for them as well. ?If you have other young children, put together a box/basket of age-appropriate special snacks, toys and activities that only comes out when you are feeding the baby. Make sure to include a book so you can all read together while the baby is being fed. ?Talk to other parents who are going through some of the same experiences. When to call the doctor ?Frequent urgency or burning upon urination ?Temperature of 100.4?F or above ?Unrelieved pain in your back, side or incision ?Bloody or pus-like drainage from your incision ?No bowel movement for four days or longer ?Bleeding stays heavy despite rest ?Saturating a pad an hour ?Passing many clots or passing clots larger than an egg (some clots are normal if you have been sitting or lying down for long periods of time) ?Foul-smelling bleeding ?Severe headache that is not relieved by a snack, nap and acetaminophen or visual disturbances like blurred vision or tunnel vision ?Social withdrawal or persistent baby blues/depression ?Hot, firm, red area in the breast ?If one leg is much more swollen than the other; you have pain in your leg when walking; or there is a red, hot area, especially in the back of your leg Discharge orders & Medications Prescriptions: New ibuprofen 600 mg Tablet 600 mg PO Q6H PRN (Reason: Fever/Mild Pain (1-3)) 14 Days Qty: 60 RF: 1 oxycodone 5 mg Tablet 5 mg PO Q4HR PRN (Reason: Pain, Moderate (4-6)) Qty: 20 RF: 0 docusate sodium [Colace] 100 mg capsule 100 mg PO BID 30 Days Qty: 60 RF: 2 Continued 1 tab tablet 1 tab PO DAILY RF: 0 Follow up/Referrals: Afshan Alegria MD [Primary Care Provider] - Discharge Health Status Multidrug resistant organism: No MDRO Diet/Activity/Treatments Diet: Diet as Tolerated Skin/Wound/Dressing Care Report to your healthcare provider any signs of infection, such as:: chills, fever, increased pain, unusual drainage and unusual redness Dressing: Dressing will be removed at the time of your 1 week post-op visit. Visit Report/Discharge Packet Instructions: , Diet Discharge Data Primary Care Provider: Afshan Alegria
[2021-03-06 15:59] VITALS: BP 108/67; PULSE 67; RESP 16; TEMP 36.8
== END 2021-03-06 20:25 | disposition home or self-care (01) | DRG 788 ==
PROVIDERS: Obstetrics & Gynecology; Admitting Provider Nurse Practitioner Obstetrics & Gynecology; PCP Student in an Organized Health Care Education/Training Program; Referring Provider Nurse Practitioner Obstetrics & Gynecology; Visit Provider Nurse Practitioner Obstetrics & Gynecology
PROC: 10D00Z1 Extraction of Products of Conception, Low, Open Approach (ICD-10-PCS; CPT 59514; principal; 2021-03-05 07:00)
DX: O48.0 Post-term pregnancy (principal); O65.4 Obstructed labor due to fetopelvic disproportion, unspecified; Z3A.41 41 weeks gestation of pregnancy; Z37.0 Single live birth; O99.824 Streptococcus B carrier state complicating childbirth; Z20.822 Contact with and (suspected) exposure to COVID-19
CPT/HCPCS: 01967; 01968; 36415; 59025; 59050; 59514; 85025; 86850; 86900; 86901; U0003; G0379; J0131; J0330; J0690; J1885; J2175; J2274; J2405; J2540; J2590; J2704

== ENCOUNTER → 2021-03-10 17:08 | Outpatient (CLI) | payer OTHER, SELFPAY ==
[2021-03-10 18:44] LABS: Add Manual Diff / Slide Review NO; Basophils Absolute Auto 0 /uL (0-100); Basophils Percent Auto 0.2 % (0-2); Eosinophils Absolute Auto 100 /uL (0-450); Hematocrit 25.4 % (36-46); Hemoglobin 9.1 g/dL (12.0-16.0); Lymphocytes Absolute Auto 2600 /uL (1100-4500); Lymphocytes Percent Auto 25.1 % (25-40); Mean Corpuscular HGB Conc 35.7 % (30-36); Mean Corpuscular Hemoglobin 33.2 PG (26-34); Mean Corpuscular Volume 93.1 fL (80-100); Monocytes Absolute Auto 500 /uL (0-900); Monocytes Percent Auto 5.2 % (3-14); Neutrophils Absolute Auto 7200 /uL (1500-7000); Neutrophils Percent Auto 68.5 % (50-75); Platelet Count 361 X10^3/uL (150-400); Red Blood Cell Count 2.73 X10^6/uL (4.0-5.2); White Blood Cell Count 10.5 X10^3/uL (4.5-11.0)
[2021-03-10 18:51] LABS: Free T4, Direct Thyroxine 1.06 ng/dL (0.78-2.19)
[2021-03-10 19:05] LABS: Thyroid Stimulating Hormone 1.25 uIU/mL (0.47-4.68)
== END ==
PROVIDERS: PCP Student in an Organized Health Care Education/Training Program; Referring Provider Student in an Organized Health Care Education/Training Program; Visit Provider Student in an Organized Health Care Education/Training Program
DX: P92.5 Neonatal difficulty in feeding at breast (principal)
CPT/HCPCS: 36415; 84439; 84443; 85025